=== PATIENT | male | born 1990 | race African-American/Black ===

== ENCOUNTER 2016-10-04 03:14 | Emergency (ER) | payer OTHER ==
[~2016-10-04] VITALS: Ht 170.2 cm; Wt 86.2 kg
[2016-10-04 03:38] VITALS: BP 102/50
[2016-10-04] MEDS ORDERED: IBUP-1060 PO (04:16)
[2016-10-04] MEDS ORDERED: CEPH-264 PO (04:16)
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
[2016-10-04] MEDS ORDERED: KETOROLAC TROMETHAMINE 60 MG/2 ML INJ. IM ONE (04:45)
--- NOTE | 2016-10-04 07:35 | RAD ---
Indication laceration. Assess for potential foreign body. AP oblique and lateral views of the left hand were obtained. No bony abnormality is seen. A radiopaque foreign body in the soft tissues is not seen
== END 2016-10-04 04:44 | disposition home or self-care (01) ==
LOC: ER 03:14
DX: S61.211A Laceration without foreign body of left index finger without damage to nail, initial encounter (principal); W45.8XXA Other foreign body or object entering through skin, initial encounter; Y93.89 Activity, other specified; Y92.89 Other specified places as the place of occurrence of the external cause; Y99.8 Other external cause status
CPT/HCPCS: 29125; 73130; 99284-25